=== PATIENT | male | born 1985 | race Caucasian/White ===

== ENCOUNTER 2020-01-29 05:46 | Emergency (ER) | payer OTHER ==
[~2020-01-29] VITALS: Ht 180.3 cm; Wt 132.9 kg
[2020-01-29 05:52] VITALS: Ht 180.3 cm; Wt 132.9 kg
[2020-01-29 07:02] VITALS: BP 124/79
== END 2020-01-29 07:02 | disposition home or self-care (01) ==
LOC: ED 05:46
DX: S46.911A Strain of unspecified muscle, fascia and tendon at shoulder and upper arm level, right arm, initial encounter (principal); S29.012A Strain of muscle and tendon of back wall of thorax, initial encounter; K29.70 Gastritis, unspecified, without bleeding; R07.89 Other chest pain; X50.0XXA Overexertion from strenuous movement or load, initial encounter; Y93.89 Activity, other specified; Y92.89 Other specified places as the place of occurrence of the external cause; Y99.8 Other external cause status

== ENCOUNTER 2020-04-11 19:41 | Emergency (ER) | payer OTHER ==
[~2020-04-11] VITALS: Ht 180.3 cm; Wt 127.0 kg
[2020-04-11 19:48] VITALS: Ht 180.3 cm; Wt 127.0 kg
[2020-04-11 22:14] LABS: BASOPHIL % 0.4 % (0-2); PLATELET COUNT 238 x10^3mcL (130-400); RED CELL DISTRIBUTION WIDTH 13.4 % (11.5-14.5)
[2020-04-11 22:40] LABS: CALCIUM 9.1 mg/dL (8.5-10.1); CARBON DIOXIDE 25.3 mmol/L (21-32); CHLORIDE SERUM 105 mmol/L (98-107); GFR1 > 60 mL/min; GLUCOSE SERUM 104 mg/dL (74-106); POTASSIUM SERUM 4.3 mmol/L (3.5-5.1); SODIUM SERUM 139 mmol/L (136-145)
[2020-04-11 22:44] LABS: ALKALINE PHOSPHATASE 112 U/L (46-116); ALT/SGPT 41 U/L (16-63); AST/SGOT 23 U/L (15-37); BILIRUBIN TOTAL 0.8 mg/dL (0.20-1.00); LIPASE 151 IU/L (73-393); TOTAL PROTEIN, SERUM 7.8 g/dL (6.4-8.2)
[2020-04-12 01:01] VITALS: BP 137/71
== END 2020-04-12 01:01 | disposition home or self-care (01) ==
LOC: ED 19:41
PROVIDERS: Emergency Medicine
DX: S90.31XA Contusion of right foot, initial encounter (principal); V49.9XXA Car occupant (driver) (passenger) injured in unspecified traffic accident, initial encounter; Y93.I9 Activity, other involving external motion; Y92.413 State road as the place of occurrence of the external cause; Y99.8 Other external cause status
CPT/HCPCS: J2270; J2405; Q0092; Q9966; Q9967